=== PATIENT | female | born 1970 | race Two or more races ===

== ENCOUNTER 2024-09-18 15:24 | Emergency (ER) | payer OTHER ==
[2024-09-18 15:33] VITALS: TEMP 97.9; BMI 29.7
[2024-09-18] MEDS ORDERED: SUCRALFATE 1 GM TABLET (FP) ONE (18:35)
[2024-09-18] MEDS ORDERED: ACETAMINOPHEN INJECTION 100 ML ONE (18:35)
[2024-09-18] MEDS ORDERED: MAG HYDROX/AL HYDROX/SIMETH 30 ML UNIT-DOSE CUP ONE (18:35)
[2024-09-18] MEDS ORDERED: FAMOTIDINE 20 MG/50 ML IVPB 20 MG/50 ML MG IVPB ONE (18:35)
[2024-09-18 19:31] LABS: BASO % 0.7 % (0-2.0); EOS % 2.7 % (0-4.5); HEMATOCRIT 45.1 % (32.4-45.2); HEMOGLOBIN 15.2 GM/dL (10.7-15.3); LYMPH % 29.2 % (8-40); MCH 28.6 pg (25.7-33.7); MCHC 33.8 g/dl (32.0-36.0); MEAN CELL VOLUME 84.8 fl (80-96); MEAN PLT VOLUME 7.9 fl (7.5-11.1); MONO % 8.8 % (3.8-10.2); NEUT % 58.6 % (42.8-82.8); PLATELET COUNT 298 10^3/uL (134-434); RBC 5.32 M/mm3 (3.60-5.2); RDW 14.8 % (11.6-15.6); WHITE BLOOD COUNT 9.9 K/mm3 (4.0-10.0)
[2024-09-18] MEDS: MAG HYDROX/AL HYDROX/SIMETH 30 ML UNIT-DOSE CUP PO ONE (19:31)
[2024-09-18] MEDS: SUCRALFATE 1 GM TABLET (FP) PO ONE (19:31)
[2024-09-18] MEDS: FAMOTIDINE 20 MG/50 ML IVPB 20 MG/50 ML MG IVPB ONE (19:31)
[2024-09-18] MEDS: ACETAMINOPHEN 1000 MG/100 ML BAG IVPB ONE (19:32)
[2024-09-18 19:40] LABS: PH,URINE 5.5 (5.0-8.0); URINE APPEARANCE CLEAR; URINE BILIRUBIN NEGATIVE (NEGATIVE); URINE COLOR YELLOW; URINE GLUCOSE (UA) 3+ (NEGATIVE); URINE KETONE 2+ (NEGATIVE); URINE LEUK ESTERASE NEGATIVE (NEGATIVE); URINE NITRITE NEGATIVE (NEGATIVE); URINE PROTEIN NEGATIVE (NEGATIVE); URINE UROBILINOGEN 0.2 mg/dL (0.2-1.0)
[2024-09-18 19:54] LABS: POTASSIUM 4.7 mmol/L (3.5-5.1)
[2024-09-18 19:59] LABS: ALBUMIN 4.1 g/dl (3.4-5.0); BLOOD UREA NITROGEN 10.4 mg/dL (7-18); CALCIUM 9.9 mg/dL (8.5-10.1)
[2024-09-18 20:02] LABS: CREATININE 0.6 mg/dL (0.55-1.3)
[2024-09-18 20:04] LABS: BILIRUBIN,TOTAL 0.6 mg/dL (0.2-1); TOT PROT 8.2 g/dl (6.4-8.2)
[2024-09-18 20:50] LABS: HIV INTERPRETATION NEGATIVE (NEGATIVE)
[2024-09-18 21:12] LABS: ACTIVATED PTT 33.3 SECONDS (25.2-36.5); INR 0.98 (0.83-1.09); PROTHROMBIN TIME (PATIENT) 11.3 SEC (9.7-13.0)
[2024-09-18 22:59] VITALS: BP 133/65; PULSE 67; RESP 18
== END 2024-09-19 01:40 | disposition home or self-care (01) ==
LOC: JER 15:24
PROC: 3E033GC Introduction of Other Therapeutic Substance into Peripheral Vein, Percutaneous Approach (ICD-10-PCS; principal; 2024-09-18)
PROC: 3E033NZ Introduction of Analgesics, Hypnotics, Sedatives into Peripheral Vein, Percutaneous Approach (ICD-10-PCS; 2024-09-18)
DX: K59.00 Constipation, unspecified (principal); R11.0 Nausea; R10.13 Epigastric pain; R10.30 Lower abdominal pain, unspecified
CPT/HCPCS: 36415; 74177-TC; 80053; 81003; 82272; 83690; 84703; 85025; 85610; 85730; 86803; 87086; 87389; 93005; 93010; 99285-25; J0131; Q9967